=== PATIENT | male | born 1955 | race Caucasian/White ===

== ENCOUNTER 2020-02-24 02:50 | Emergency (ER) | payer MEDICARE, SELFPAY ==
[2020-02-24 02:51] VITALS: BP 163/96; PULSE 86; RESP 20; TEMP 36.4; O2SAT 96; BMI 36.9
--- NOTE | 2020-02-24 03:08 | CT_ITS ---
STUDY: CT BRAIN WITHOUT CONTRAST REASON FOR EXAM: Male, 64 years old patient with large hematoma of right-sided orbital soft tissues after fall. Recent ethanol use. RADIATION DOSAGE (If Supplied By Facility): CTDIvol = ( 44.99 ) mGy, DLP = ( 812.98 ) mGycm TECHNIQUE: Transaxial CT imaging of the brain was performed without administration of intravenous contrast material. Multiplanar reformations are submitted for interpretation. Individualized dose optimization techniques were used for this CT. COMPARISON: No relevant priors. FINDINGS: There is a large hematoma involving the right-sided preseptal orbital soft tissues measuring approximately 1.9 cm. Normal calvarium. There is mild cerebral atrophy with widening of the extra-axial spaces and ventricular dilatation. Normal white matter tracts of the cerebral hemispheres. There are small punctate calcifications of the basal ganglia which are seen in the aging brain as a normal variant. Normal brainstem. Normal cerebellum. There is no intracranial hemorrhage. There are no findings of an acute ischemic infarction. There is mucoperiosteal inflammatory disease of the paranasal sinuses consistent with mild chronic sinusitis. CT/Brain/Head without Contrast IMPRESSION: 1. Chronic involutional changes of the brain. 2. Large right-sided orbital preseptal soft tissue hematoma and contusion. 3. No CT evidence of acute intracranial hemorrhage. Electronically Signed: Marry Fitzpatrick MD at 3:52 EDT , Service support ,
--- NOTE | 2020-02-24 03:08 | CT_ITS ---
STUDY: CT FACIAL BONES WITHOUT CONTRAST REASON FOR EXAM: Male, 64 years old patient with large right orbital hematoma after fall. RADIATION DOSAGE (If Supplied By Facility): CTDIvol = ( 29.38 ) mGy, DLP = ( 611.84 ) mGycm TECHNIQUE: The patient was scanned in a multi detector CT scanner. Sagittal and coronal images were reconstructed. Individualized dose optimization techniques were used for this CT. COMPARISON: Prior comparison studies are not available for review at this time. FINDINGS: There is a large hematoma involving the right preseptal orbital soft tissues measuring approximately 2 x 2.2 x 1.9 cm in size. There is additional soft tissue swelling and probable hemorrhage in this general area as well. The extraocular muscles, optic nerves and globes have a grossly normal appearance. The bony orbit has a grossly normal appearance. Normal nasal bones and anterior nasal spine. Dougherty of the frontal sinuses, dougherty of the maxillary sinuses, pterygoid plates, zygomatic arches and mandible have a normal appearance. The temporomandibular joints have a normal appearance. There is no demonstrated fracture. There is mild paranasal sinus disease. CT/Sinus/Facial Bone IMPRESSION: 1. No CT evidence for facial bone fracture. 2. Large right-sided preseptal orbital soft tissue contusion with hematoma. Electronically Signed: Marry Fitzpatrick MD at 3:59 EDT , Service support ,
--- NOTE | 2020-02-24 03:08 | CT_ITS ---
STUDY: CT CERVICAL SPINE WITHOUT CONTRAST REASON FOR EXAM: Male, 64 years old neck injury after fall with closed head injury. RADIATION DOSAGE (If Supplied By Facility): CTDIvol = ( 28.14 ) mGy, DLP = ( 651.80 ) mGycm TECHNIQUE: High resolution transaxial imaging was performed without contrast material. Sagittal and coronal images were reconstructed. Individualized dose optimization techniques were used for this CT. COMPARISON: Prior comparison studies are not available for review at this time. FINDINGS: Normal craniovertebral junction. There are degenerative changes of the anterior atlantoaxial articulation. Normal odontoid process. Normal cervical lordosis. The vertebral bodies have normal height and alignment. C2-3: Normal endplates. Normal disc height and morphology. Normal central canal. There is moderate narrowing of bilateral intervertebral neuroforamina with facet joint hypertrophy. There appears be segmentation anomaly at this level with possible fusion of the facet joints. C3-4: Normal endplates. Normal disc height and morphology. There is mild central canal stenosis. There is severe bilateral neural foraminal narrowing secondary to uncovertebral and facet joint arthropathy, right more severe than left. C4-5: Normal endplates. Normal disc height and morphology. Normal central canal. There is severe narrowing of bilateral intervertebral neuroforamina with hypertrophic left-sided facet joint arthropathy. C5-6: Normal endplates. Normal disc height and morphology. Normal central canal. There is severe right-sided neuroforaminal narrowing and moderate left-sided neuroforaminal narrowing. C6-7: Normal endplates. Normal disc height and morphology. Normal central canal. There is mild narrowing of bilateral intervertebral neuroforamina. C7-T1: Normal endplates. Normal disc height and morphology. Normal central canal and intervertebral neuroforamina. Lung apices appear to be clear. Paraspinal soft tissues are within normal limits. There is atherosclerotic calcification of the carotid bulbs. CT/Spine Cervical without Contras IMPRESSION: 1. No CT evidence of acute compression or displaced fracture of the cervical spine. 2. Multilevel degenerative disc disease and degenerative arthropathy of the cervical spine with neural foraminal narrowing, as described. Electronically Signed: Marry Fitzpatrick MD at 4:07 EDT , Service support ,
--- NOTE | 2020-02-24 03:09 | ED.VIS.GEN ---
History of Present Illness Chief Complaint: Fall Informant: Patient Onset: Today Narrative: Patient presents via EMS after a fall. Patient does admit to drinking tonight. He fell and struck his face. His friends bandaged up his head and called 911. Patient denies loss of consciousness. He states he is feeling no pain. Past Medical History - Allergies and Home Meds Allergies/Adverse Reactions: Allergies No Known Allergies Allergy (Verified 02/24/20 02:54) Primary Care Physician: Ajay Beatty MD [Primary Care Provider] - Past Medical History: None Smoking Status: Never smoker Review of Systems General: Denies: Chills, Fever Eyes: Reports: - - Right eyelid swelling. Denies: Visual changes - bilaterally ENT: Denies: Bilateral ear pain Cardiovascular: Denies: Chest pain Respiratory: Denies: Dyspnea, Cough Gastrointestinal: Denies: Abdominal pain, Nausea, Vomiting, Diarrhea Genitourinary: Denies: Dysuria Musculoskeletal: Denies: Swelling, Extremity Pain Skin: Reports: Abrasions Neurological: Denies: Headache Hematologic: Denies: Easy bruising, Easy bleeding Allergy: Denies: Uticaria Physical Exam Vital Signs/Narrative: Vital Signs Temp Pulse Resp BP Pulse Ox 02/24/20 02:51 97.6 F L 86 20 H 163/96 H 96 Inital Vital Signs reviewed: Yes General: Well nourished, Well developed Head: Normocephalic Eyes: - - Arch hematoma to the right upper eyelid. 2 superficial abrasions with mild bleeding noted. Neck: Supple Cardiovascular: Regular rate, Regular rhythm Respiratory: No distress, CTA bilaterally Abdomen: Soft, Nontender Extremities: Nontender Neurological: Alert, - - No focal neurologic deficits. Psychological: Normal affect Diagnostic/Tx/Re-eval Impressions Brain CT 02/24/20 03:08 IMPRESSION: 1. Chronic involutional changes of the brain. 2. Large right-sided orbital preseptal soft tissue hematoma and contusion. 3. No CT evidence of acute intracranial hemorrhage. Electronically Signed: Marry Fitzpatrick MD at 3:52 EDT , Service support , Cervical Spine CT 02/24/20 03:08 IMPRESSION: 1. No CT evidence of acute compression or displaced fracture of the cervical spine. 2. Multilevel degenerative disc disease and degenerative arthropathy of the cervical spine with neural foraminal narrowing, as described. Electronically Signed: Marry Fitzpatrick MD at 4:07 EDT , Service support , Facial/Sinus 02/24/20 03:08 IMPRESSION: 1. No CT evidence for facial bone fracture. 2. Large right-sided preseptal orbital soft tissue contusion with hematoma. Electronically Signed: Marry Fitzpatrick MD at 3:59 EDT , Service support , 02/24/20 03:08 CT Cervical [Spine Cervical without Contras] [CT] Stat CT Facial [Sinus/Facial Bone] [CT] Stat CT Head [Brain/Head without Contrast] [CT] Stat - Medical Decision Making Patient's right facial wound is cleansed and sealed with Dermabond. CT scans are unremarkable other than hematoma. At this time patient is resting comfortably. Once clinically sober he will be discharged home with a sober ride. ED Disposition - Plan for ED Patient: Disposition: Home or Assisted Living Diagnosis: Alcohol intoxication, Fall, Hematoma Instructions: ED Mechanical Fall, ED Hematoma Referrals: Ajay Beatty MD [Primary Care Provider] - Min Hogan MD [STAFF PHYSICIAN] - As Needed
[2020-02-24 04:51] VITALS: BP 155/90; PULSE 88; RESP 17; O2SAT 97
[2020-02-24 10:38] VITALS: BP 165/101; PULSE 90; O2SAT 95
== END 2020-02-24 10:45 | disposition home or self-care (01) ==
PROVIDERS: Emergency Provider Emergency Medicine; PCP Family Medicine
DX: S00.211A Abrasion of right eyelid and periocular area, initial encounter (principal); S00.11XA Contusion of right eyelid and periocular area, initial encounter; F10.129 Alcohol abuse with intoxication, unspecified; W19.XXXA Unspecified fall, initial encounter; Y93.9 Activity, unspecified; Y92.9 Unspecified place or not applicable
CPT/HCPCS: 12013; 70450; 70486; 72125; 99284